=== PATIENT | male | born 1975 | race Caucasian/White ===

== ENCOUNTER 2020-05-28 17:39 | Emergency (ER) | payer OTHER, SELFPAY ==
[2020-05-28 17:56] VITALS: BP 124/83; PULSE 77; RESP 16; TEMP 37.3; O2SAT 99
--- NOTE | 2020-05-28 18:36 | ED.GENADULT ---
HPI - General Adult General Chief complaint: Eye Problems Stated complaint: eye irritation Time Seen by Provider: 05/28/20 18:37 Source: patient and RN notes reviewed Mode of arrival: ambulatory Limitations: no limitations History of Present Illness HPI narrative: 44-year-old male presents with complains of redness, tearing, irritation, and sensation of foreign body in right eye for the past hour. Chet reports outside doing yard work when debris flew into right eye causing irritation. Irrigated eye without relief. Mild redness. Symptoms worsening with irrigation. Exacerbating factor light and rubbing eye. Relieving factors is closing eyes. Denies blurred vision, double vision, or pain of eye with movement. Does not wear glasses or contact lenses. The patient reports he have not been diagnosed with COVID-19. The patient reports he is not waiting for the results of a COVID-19 lab test. The patient reports he do not have fever, chills, weakness, or fatigue. The patient reports he do not have a new or worsening cough or shortness of breath. Denies chest pain. The patient reports he do not have any rhinorrhea, congestion, loss of taste or smell, sore throat, nausea, vomiting, abdominal pain, and diarrhea. Tolerating po intake well. Denies recent traveling. Denies concerns for COVID-19 or exposures been home with limited outdoor exposure except for essential household needs, work, and return home. At this time, patient is not suspected of having COVID-19. Some parts of this dictation were generated by voice recognition software and may contain typographical and/or grammatical inaccuracies. Related Data Allergies Allergy/AdvReac Type Severity Reaction Status Date / Time No Known Allergies Allergy Unverified 04/28/19 10:24 Review of Systems Review of Systems: Narrative: CONSTITUTIONAL: Denies fever, chills, sweats. EYES: Denies visual changes. Complains of RT eye redness and foreign body sensation, irritation, clear tearing. ENT: Denies rhinorrhea, congestion, sore throat, otalgia. CARDIOVASCULAR: Denies chest pain, palpitations, edema. RESPIRATORY: Denies dyspnea, wheezing, cough. GASTROINTESTINAL: Denies abdominal pain, nausea, vomiting, diarrhea. SKIN: Denies rash or itching. MUSCULOSKELETAL: Denies acute back pain, joint pain, or myalgia. NEUROLOGIC: Denies numbness or focal weakness. PSYCHIATRIC: Denies anxiety or depression. All systems reviewed & are unremarkable except as noted in HPI and below PMFSH Past Medical History Medical History (Updated 05/29/20 @ 00:00 by Corine Navarro) Asthma Childhood Surgical History Surgical History (Updated 05/28/20 @ 18:52 by TINA Arambula) No significant past surgical history Family History Family History Father Family history of heart disease in male family member before age 55, Onset Age: 48 Patient's father is Grandparent Family history of Alzheimer's disease Mother Patient's mother is in good health Other Asthma Social History Social History (Updated 05/28/20 @ 18:53 by TINA Arambula) Smoking status: Former smoker Tobacco type: cigarettes Second hand tobacco smoke exposure: No (Chet reports quitting over 30 years ago) Alcohol intake: current Substance use: never Substance use type: does not use Living arrangements: with family Occupation/Education: occupation Gender identity (if verbalized by the patient): Male Sexual Orientation (if Verbalized by the Patient): Straight or Heterosexual Comments At time of signature, I have reviewed and agree with nursing past medical, surgical, social, and family history. Please see nursing chart for further information. There is no relevant family history pertinent to the presenting complaint. Exam Narrative: Exam Narrative: GENERAL: This is a well-nourished, well-developed patie
== END 2020-05-28 19:01 | disposition home or self-care (01) ==
PROVIDERS: Emergency Provider Nurse Practitioner Family; PCP Internal Medicine
DX: S05.01XA Injury of conjunctiva and corneal abrasion without foreign body, right eye, initial encounter (principal); X58.XXXA Exposure to other specified factors, initial encounter; Y93.H9 Activity, other involving exterior property and land maintenance, building and construction; Z87.891 Personal history of nicotine dependence; E78.00 Pure hypercholesterolemia, unspecified
CPT/HCPCS: 99213; A9270; G0463

== ENCOUNTER 2024-10-29 00:06 | Day surgery (SDC) | payer OTHER, SELFPAY ==
[2024-10-19 09:42] VITALS: BMI 37.3
[2024-10-29 07:45] VITALS: BP 126/84; PULSE 80; RESP 20; TEMP 36.2; O2SAT 99; BMI 38.0
[2024-10-29] MEDS: LACTATED RINGERS 1,000 ML 150 ML IV CONT (08:01)
--- NOTE | 2024-10-29 08:05 | P.PNAN_ITS ---
Anes - Initial Pre Proc Eval Procedure: Operation Date: 10/29/24 08:30 Proposed Procedures p Screening Colonoscopy - Issac Oh MD Date/Time: 10/29/24 08:05 Surgeon: Issac Oh MD Pre Op Diagnosis: Screening Patient Data Age: 48 Gender: M Height: 1.88 m Weight: 134.2 kg Last Vital Signs Temp 36.2 C L 10/29/24 07:45 Pulse 80 10/29/24 07:45 Resp 20 10/29/24 07:45 BP 126/84 10/29/24 07:45 Pulse Ox 99 10/29/24 07:45 O2 Del Method Room Air 10/29/24 07:45 Allergies Allergy/AdvReac Type Severity Reaction Status Date / Time High-fructose corn syrup Allergy Unknown Uncoded 10/29/24 07:50 Home Medications ?Medication ?Instructions ?Recorded ?Confirmed ?Type rosuvastatin 40 mg tablet 40 mg PO DAILY #30 tabs 11/0110/29/24 Rx Patient hx anesthesia problems: none Family hx anesthesia problems: none Results Review: All pre-operative results and documents have been reviewed as part of the pre- operative evaluation. [facility] Past Medical History Medical History (Updated 10/29/24 @ 08:06 by Igor Otoole MD) Obesity Hyperlipidemia Asthma Childhood Surgical History Surgical History No significant past surgical history Family History Family History Father Family history of heart disease in male family member before age 55, Onset Age: 48 Patient's father is Grandparent Family history of Alzheimer's disease Mother Patient's mother is in good health Other Asthma Social History Social History Smoking status: Former smoker Tobacco type: cigarettes Second hand tobacco smoke exposure: No (Chet reports quitting over 30 years ago) Alcohol intake: current Substance use: never Substance use type: does not use Living arrangements: with family Occupation/Education: occupation Gender identity (if verbalized by the patient): Male Sexual Orientation (if Verbalized by the Patient): Straight or Heterosexual Anes - Eval Final PreProcedure Day of Procedure 10/29/24 08:05 Patient weight: obese Heart: regular rate and rhythm Lungs: clear to auscultation Airway: Mallampati scale class III Neurological: alert and oriented Last oral intake: >/= 8 hours ASA classification: III Emergent: no Anesthetic plan: proceed Anesthesia type and monitoring: general GIVS and standard monitoring Results Review: All pre-operative results and documents have been reviewed as part of the pre- operative evaluation. Informed Consent: The patient's anesthetic plan and its attendant risks and benefits were discussed with the patient/family/POA. Questions were solicited and answers provided to the satisfaction of the patient/family/POA.
--- NOTE | 2024-10-29 08:48 | PM.IMHP ---
H&P: HPI History of Present Illness Date/Time: 10/29/24 08:48 Chief Complaint: Screening colonoscopy Narrative: This is the patient's first colonoscopy. There are no GI symptoms and there is no family history of colorectal cancer. Review of Systems Review of Systems: All systems reviewed & are unremarkable except as noted in HPI and below PMFSH Past Medical History Medical History (Updated 10/29/24 @ 08:06 by Igor Otoole MD) Obesity Hyperlipidemia Asthma Childhood Surgical History Surgical History No significant past surgical history Family History Family History Father Family history of heart disease in male family member before age 55, Onset Age: 48 Patient's father is Grandparent Family history of Alzheimer's disease Mother Patient's mother is in good health Other Asthma Social History Social History Smoking status: Former smoker Tobacco type: cigarettes Second hand tobacco smoke exposure: No (Chet reports quitting over 30 years ago) Alcohol intake: current Substance use: never Substance use type: does not use Living arrangements: with family Occupation/Education: occupation Gender identity (if verbalized by the patient): Male Sexual Orientation (if Verbalized by the Patient): Straight or Heterosexual Meds Home Medications and Allergies Home Medications ?Medication ?Instructions ?Recorded ?Confirmed ?Type rosuvastatin 40 mg tablet 40 mg PO DAILY #30 tabs 09/14/24 10/29/24 Rx Allergies Allergy/AdvReac Type Severity Reaction Status Date / Time High-fructose corn syrup Allergy Unknown Uncoded 10/29/24 07:50 Vital Signs Vital Signs - 24 hr 10/29/24 07:45 Temperature 97.1 F L Pulse Rate 80 Respiratory Rate 20 Blood Pressure 126/84 Pulse Oximetry 99 Oxygen Delivery Room Air Exam Const: General: cooperative and healthy appearing Resp: Effort & Inspection: normal respiratory effort and able to speak in complete sentences Auscultation: clear to auscultation bilaterally Cardio: Rate: regular rate Rhythm: regular rhythm GI: Inspection: normal to inspection GI Palp: No No hepatosplenomegaly present Auscultation: normal bowel sounds Rectal Exam: deferred Skin: General skin exam: normal color Psych: Appearance: grossly normal Mental Status: mental status grossly normal Assessment and Plan Assessment and plan (1) Screening for colon cancer: Code(s): Z12.11 - Encounter for screening for malignant neoplasm of colon Status: Acute Assessment and Plan: The patient is deemed a good candidate for the procedure. Consent signed. Will proceed.
[2024-10-29 09:18] VITALS: BP 110/68; PULSE 73; RESP 21; O2SAT 96
[2024-10-29 09:28] VITALS: BP 119/79; PULSE 71; RESP 22; O2SAT 96
[2024-10-29 09:38] VITALS: BP 124/90; PULSE 71; RESP 17; O2SAT 96
== END 2024-10-29 09:45 | disposition home or self-care (01) ==
PROVIDERS: PCP Internal Medicine; Referring Provider Clinical Nurse Specialist; Visit Provider Internal Medicine Gastroenterology
PROC: 0DJD8ZZ Inspection of Lower Intestinal Tract, Via Natural or Artificial Opening Endoscopic (ICD-10-PCS; CPT 45378; principal; 2024-10-29 08:30)
DX: Z12.11 Encounter for screening for malignant neoplasm of colon (principal); K64.8 Other hemorrhoids; E78.5 Hyperlipidemia, unspecified; J45.909 Unspecified asthma, uncomplicated; E66.9 Obesity, unspecified; Z68.38 Body mass index [BMI] 38.0-38.9, adult; Z87.891 Personal history of nicotine dependence; Z82.49 Family history of ischemic heart disease and other diseases of the circulatory system
CPT/HCPCS: 45378; J2003; J2704; J7120